=== PATIENT | female | born 1960 | race Caucasian/White ===

== ENCOUNTER 2017-02-08 11:42 | Emergency (ER) | payer OTHER, MEDICAID ==
[2017-02-08 12:09] VITALS: BP 155/76; PULSE 79; RESP 16; TEMP 98.2; O2SAT 98
--- NOTE | 2017-02-08 13:13 | EDPHY ---
H & P Time Seen by Provider: 02/08/17 13:07 HPI/ROS: CHIEF COMPLAINT: Insect bite HISTORY OF PRESENT ILLNESS: The patient is a 56-year-old female presenting with left upper extremity swelling after an insect sting. The patient was stung 2 days ago. Her whole arm was originally swollen, red, and itchy. Since then the swelling and redness have reduced. She continues to have a small area or erythema with continued itchiness. The patient has been applying Benadryl and Montserrat cream. She denies fever. ROS: No numbness, weakness, excessive bleeding, syncopal episode, other injury. Past Medical/Surgical History: Fibromyalgia, CHF, HLD, HTN, Neuropathy, Asthma, DMII, [place], Depression, Chronic neck pain. Social History: . Smoking Status: Never smoked Physical Exam: Alert and oriented x3, no acute distress Extremities: 4cm diameter along posterior aspect of upper arm. Minimal warmth, mild erythema. Skin: No rash Neuro: Motor and sensory intact Vascular: Capillary refill brisk distally Constitutional: Initial Vital Signs Temperature (C) 36.8 C 02/08/17 12:07 Heart Rate 79 02/08/17 12:07 Respiratory Rate 16 02/08/17 12:07 Blood Pressure 155/76 H 02/08/17 12:07 O2 Sat (%) 98 02/08/17 12:07 O2 Delivery Mode Room Air Allergies/Adverse Reactions: clindamycin Allergy (Severe, Verified 12/23/14 10:22) Swelling/neck,face,throat erythromycin base [Erythromycin Base] Allergy (Severe, Verified 12/23/14 10:22) Swelling/neck,face,throat Iodinated Contrast- Oral and IV Dye [IV Dye, Iodine Containing Contrast ] Allergy (Severe, Verified 12/23/14 10:22) Swelling/neck,face,throat Penicillins Allergy (Severe, Verified 12/23/14 10:22) Swelling/neck,face,throat Sulfa (Sulfonamide Antibiotics) Allergy (Intermediate, Verified 12/23/14 10:22) Hives Home Medications: Medication Instructions Recorded Albuterol [Proventil Inhaler HFA 2 puffs IH DAILY 10/18/14 (*)] Beclomethasone Qvar 80 [Qvar 80 1 puffs IH DAILY 10/18/14 (*)] Cyclobenzaprine HCl 10 mg PO HS 10/18/14 Fluticasone Nasal [Flonase Nasal 1 sprays NASAL BID 10/18/14 [place]] Herbals/Supplements -Info Only 1 ea PO DAILY 10/18/14 Ipratropium/Albuterol [Combivent 1 inh IH BID 10/18/14 Respimat Inhal [place](*)] Metformin HCl [Metformin 1000 mg] 1,000 mg PO BID 10/18/14 Simvastatin [Zocor] 40 mg PO DAILY 10/18/14 Venlafaxine HCl [Venlafaxine HCl 150 mg PO DAILY 10/18/14 ER] buPROPion XL [Wellbutrin 150mg XL] 150 mg PO DAILY 10/18/14 Carvedilol [Coreg (*)] 12.5 mg PO BIDMEAL #60 tab 10/26/14 Furosemide [Lasix] 20 mg PO DAILY #30 tab 10/26/14 Potassium Cl [Klor-Con] 10 meq PO DAILY #30 tab 10/26/14 Propylthiouracil [Propylthiouracil 50 mg PO QID #120 tab 10/26/14 50mg (*)] Hydrocodone/APAP 5/325 [[place] 1 - 2 tab PO Q4H PRN #10 tab 12/23/14 5/325] Medical Decision Making ED Course/Re-evaluation: Patient presents swelling and erythema to the posterior aspect of the left upper extremity after an insect sting that occurred 2 days ago. The patient states the swelling and redness have decreased since onset. On exam there is minimal warmth to the area, no drainage, or signs of infection. I do not recommend antibiotic. Patient was instructed to use antihistamines and apply ice to the swollen area. Departure - Departure Disposition: Home, Routine, Self-Care Clinical Impression: Insect bite Qualifiers: Encounter type: initial encounter Qualified Code(s): W57.XXXA - Bitten or stung by nonvenomous insect and other nonvenomous arthropods, initial encounter Condition: Good Instructions: Insect Bite or Sting (ED) Additional Instructions: I recommend using Claritin or Montserrat during the day to reduce swelling and itchiness. At night you should use Benadryl. Continue applying ice to the area. Follow up with your primary care physician as needed. Return to the emergency department if you develop signs of infection including fever, increased redness , pain, or swelling. Referrals: Sarbjit,Leonel J, MD [Primary Care Provider] - As per Instructions Report Scribed for: Daria Portillo Report Scribed by: Ursula Velasquez Date of Report: 02/08/17 Time of Report: 13:19 Physician Review and Approval Statement: 02/08/17 13:19 Portions of this note were transcribed by a medical record librarian. I personally performed the history, physical exam, and medical decision-making; and confirmed the accuracy of the information in the transcribed note.
== END 2017-02-08 13:21 | disposition home or self-care (01) ==
DX: S40.862A Insect bite (nonvenomous) of left upper arm, initial encounter (principal); I11.0 Hypertensive heart disease with heart failure; I50.9 Heart failure, unspecified; J45.909 Unspecified asthma, uncomplicated; E11.9 Type 2 diabetes mellitus without complications; Z79.84 Long term (current) use of oral hypoglycemic drugs; W57.XXXA Bitten or stung by nonvenomous insect and other nonvenomous arthropods, initial encounter

== ENCOUNTER → 2017-02-09 | Outpatient (CLI) | payer OTHER, MEDICAID | LOC: FIMAGING 08:26 | PROVIDERS: ATTEND Family Medicine | DX: Z12.31 Encounter for screening mammogram for malignant neoplasm of breast (principal) | CPT/HCPCS: G0202 ==